=== PATIENT | male | born 1995 | race Two or more races ===

== ENCOUNTER 2025-02-25 00:14 | Emergency (ER) | payer MEDICAID, OTHER ==
[~2025-02-25] VITALS: Ht 170.2 cm; Wt 86.2 kg
[2025-02-25 00:49] LABS: PLATELET COUNT (AUTO) 260 K/uL (150-450); RED BLOOD CELL COUNT(AUTO) 4.83 MIL/uL (4.5-6.0); RED CELL DISTRIBUTION WIDTH 12.7 % (11.5-15.0); WHITE BLOOD COUNT (AUTO) 12.4 K/uL (4.3-11.0)
[2025-02-25 00:56] LABS: CALCIUM, SERUM 8.7 mg/dL (8.5-10.1); CREATININE 0.6 mg/dL (0.6-1.3); SODIUM SERUM 137.0 mmol/L (136-145); UREA NITROGEN, BLOOD 10.0 mg/dL (7-18)
[2025-02-25 00:57] LABS: SERUM AMMONIA 21.0 umol/L (11-32)
[2025-02-25] MEDS ORDERED: OLANZAPINE 10 MG VIAL IM ONE (00:57)
[2025-02-25] MEDS: IV NS 0.9% 1,000 ML BAG IV ONE (01:02)
[2025-02-25] MEDS: OLANZAPINE 10 MG VIAL IM ONE (01:02)
[2025-02-25 01:10] LABS: ALCOHOL, BLOOD 318.0 mg/dL (0-10); ASPARTATE AMINOTRANSFERASE 13.0 U/L (15-37); TOTAL PROTEIN, SERUM 8.1 g/dL (6.4-8.2)
[2025-02-25 01:40] LABS: APPEARANCE,URINE CLEAR (CLEAR); BLOOD, URINE NEGATIVE Ery/uL (NEGATIVE); LEUKOCYTE ESTERASE ,URINE NEGATIVE (NEGATIVE); NITRITE, URINE NEGATIVE (NEGATIVE); UGLUCOSE 3+ mg/dL (NEGATIVE)
[2025-02-25 01:51] LABS: ADD URINE CULTURE NO; SQUAMOUS EPITHELIAL CELL,UR Rare /HPF (None Seen)
[2025-02-25 01:55] LABS: AMPHETAMINE, URINE NEGATIVE (NEGATIVE); BARBITURATE, URINE NEGATIVE (NEGATIVE); BENZODIAZEPINE, URINE NEGATIVE (NEGATIVE); CANNABINOID, URINE NEGATIVE (NEGATIVE); COCCAINE, URINE NEGATIVE (NEGATIVE); OPIATE, URINE NEGATIVE (NEGATIVE)
[2025-02-25 05:36] VITALS: BP 122/80; TEMP 98.1; O2SAT 98
== END 2025-02-25 05:37 | disposition home or self-care (01) ==
LOC: ER 00:16
DX: G93.41 Metabolic encephalopathy (principal); F10.129 Alcohol abuse with intoxication, unspecified; R73.9 Hyperglycemia, unspecified; E87.6 Hypokalemia; F17.200 Nicotine dependence, unspecified, uncomplicated; Y90.8 Blood alcohol level of 240 mg/100 ml or more
CPT/HCPCS: 99283; 96372; 96360; 82140; 85025; 80048; 80076; 81001; 36415; 84443; 80320; 80307; 98960; J7030; J3490; G0480